=== PATIENT | female | born 1985 | race Two or more races ===

== ENCOUNTER 2017-08-07 01:10 | Emergency (ER) | payer SELFPAY ==
[~2017-08-07] VITALS: Ht 170.2 cm; Wt 56.2 kg
[2017-08-07 01:12] VITALS: BP 113/77
== END 2017-08-07 02:18 | disposition home or self-care (01) ==
LOC: ED 02:12
DX: L03.032 Cellulitis of left toe (principal); F15.10 Other stimulant abuse, uncomplicated
CPT/HCPCS: 99283

== ENCOUNTER 2018-08-17 08:35 | Emergency (ER) | payer SELFPAY ==
[~2018-08-17] VITALS: Ht 170.2 cm; Wt 60.3 kg
[2018-08-17 08:36] VITALS: BP 119/82
--- NOTE | 2018-08-17 08:56 | NUR ---
Pt in xray at this time.
[2018-08-17] MEDS ORDERED: KETOROLAC 30 MG/1 ML IM ONE (09:00)
[2018-08-17] MEDS ORDERED: KETOROLAC 30 MG/1 ML ONE (09:09)
--- NOTE | 2018-08-17 09:13 | NUR ---
Pt back from xray, medicated per MAR, denies other needs.
--- NOTE | 2018-08-17 09:38 | NUR ---
Pt states pain improved after medications.
== END 2018-08-17 09:57 | disposition home or self-care (01) ==
LOC: ED 09:17
DX: M25.532 Pain in left wrist (principal)
CPT/HCPCS: 29125; 73090; 73110; 73130; 96372; 99283; J1885

== ENCOUNTER 2020-11-09 15:51 | Emergency (ER) | payer SELFPAY ==
[~2020-11-09] VITALS: Ht 170.2 cm; Wt 61.0 kg
[2020-11-09 15:52] VITALS: BP 135/89
--- NOTE | 2020-11-09 16:02 | NUR ---
bib AMB from outside of a motel. pt started having LUQ pain about an hour ago. states it radiates to LLQ and pelvic area. denies vomiting. states she has to pee but she can't hx: hep c also states she wont stay unless her friend is in the lobby and stays with her.
[2020-11-09] MEDS ORDERED: ONDANSETRON 2MG/ML, 2ML IVPush ONE (16:30)
[2020-11-09] MEDS ORDERED: KETOROLAC 30 MG/1 ML IVPush ONE (16:30)
[2020-11-09] MEDS ORDERED: SODIUM CHLORIDE 0.9% 1,000ML IVBOLUS ONE (16:30)
[2020-11-09] MEDS ORDERED: DIPHENHYDRAMINE 50 MG/ML, 1ML IVPush ONE (16:30)
--- NOTE | 2020-11-09 16:30 | NUR ---
PT YELLING, VERBALLY ABUSIVE TO TO ALL STAFF. PT EDUCATED, MAY NOT SPEAK TO STAFF THAT WAY, PT CONTINUES TO YELL AT STAFF.
[2020-11-09] MEDS ORDERED: KETOROLAC 30 MG/1 ML ONE (16:37)
[2020-11-09] MEDS ORDERED: DIPHENHYDRAMINE 50 MG/ML, 1ML ONE (16:37)
[2020-11-09] MEDS ORDERED: ONDANSETRON 2MG/ML, 2ML ONE (16:38)
[2020-11-09 16:39] LABS: MICROSCOPIC AUTO
[2020-11-09 16:40] LABS: BASOPHILS % (AUTO) 1 % (0-1); EOSINOPHILS % (AUTO) 1 % (1-7); LYMPHOCYTES % (AUTO) 25 % (22-44); MEAN CORPUSCULAR HEMOGLOBIN 29.2 pg (27.0-34.8); MEAN CORPUSCULAR HGB CONC 34.2 g/dL (32.4-35.8); MEAN PLATELET VOLUME 9.3 fL (7.4-10.4); MONOCYTES % (AUTO) 6 % (2-9); NEUTROPHILS % (AUTO) 67 % (42-75); PLATELET COUNT 215 x10^3/uL (130-400); RED BLOOD COUNT 4.49 x10^6/uL (3.82-5.3); RED CELL DISTRIBUTION WIDTH 12.8 % (9.6-15.2)
[2020-11-09 16:53] LABS: ALANINE AMINOTRANSFERASE 19 U/L (12-78); ALBUMIN 3.6 g/dL (3.4-5.0); ANION GAP 4 mmol/L (5-15); CALCIUM 9.2 mg/dL (8.5-10.1); CHLORIDE 111 mmol/L (98-107); CREATININE 0.89 mg/dL (0.55-1.02)
[2020-11-09 16:58] LABS: ALKALINE PHOSPHATASE 100 U/L (45-117); BILIRUBIN,TOTAL 0.7 mg/dL (0.2-1.0); TOTAL PROTEIN 7.8 g/dL (6.4-8.2)
--- NOTE | 2020-11-09 17:05 | NUR ---
PT COMBATIVE, YELLING AT STAFF, PT IS VERBALLY ABUSIVE. ATTEMPTS TO REDIRECT PT MADE, PT REMAINS VERBALLY ABUSIVE TO STAFF. PT STATES SHE WANTS TO LEAVE ER SINCE PAIN MEDICATIONS NOT HELPING. PT IV D/C'D AND SECURITY CALLED TO HELP ESCORT PT OUT OF ER. ER PA-C AWARE. PT HAS ALL OWN BELONGINGS UPON LEAVING ER.
--- NOTE | 2020-11-09 17:16 | NUR ---
PT IV D/C'D BEFORE LEAVING ER.
== END 2020-11-09 17:17 | disposition left against medical advice (07) ==
LOC: ED 16:54
DX: R10.12 Left upper quadrant pain (principal); F15.10 Other stimulant abuse, uncomplicated; R11.2 Nausea with vomiting, unspecified; F17.210 Nicotine dependence, cigarettes, uncomplicated; R00.0 Tachycardia, unspecified
CPT/HCPCS: 36415; 80053; 81001; 83690; 84703; 85025; 87077; 87086; 96361; 96374; 96375; 99284; J1200; J1885; J2405; J7030; 87186